=== PATIENT | male | born 1945 | race Caucasian/White ===

== ENCOUNTER 2020-03-01 21:47 | Emergency (ER) | payer OTHER ==
[~2020-03-01] VITALS: Ht 170.2 cm; Wt 73.0 kg
[2020-03-01 23:44] LABS: BASOPHILS % 0.5 % (0.0-2.0); EOSINOPHILS % 1.1 % (0.0-5.0); HEMATOCRIT. 28.6 % (42.0-52.0); HEMOGLOBIN. 9.9 g/dL (14.0-18.0); LYMPHOCYTES % 12.3 % (20.0-50.0); MEAN CORPUSCULAR VOLUME 89.3 fL (80.0-94.0); MEAN PLATELET VOLUME 7.9 fl (7.4-10.4); MONOCYTES % 8.5 % (2.0-8.0); NEUTROPHILS % 77.6 % (40.0-76.0); PLATELET 197 x1000/uL (130-400); RED CELL DISTRIBUTION WIDTH 15.9 % (11.6-14.6)
[2020-03-01 23:51] LABS: CHLORIDE 104 mEq/L (98-107)
[2020-03-02] MEDS ORDERED: ASPIRIN 81MG TABLET PO SCH (01:15)
[2020-03-02] MEDS ORDERED: SODIUM CHLORIDE 0.9% 1,000 ML IV ONE (01:15)
[2020-03-02] MEDS ORDERED: LEVOFLOXACIN 500MG PREMIX 100 ML IV SCH (01:15)
[2020-03-02] MEDS ORDERED: DIPHENHYDRAMINE 50MG/ML VIAL IV PRN (08:30)
[2020-03-02] MEDS ORDERED: CLONIDINE 0.1MG TABLET PO PRN (08:30)
[2020-03-02] MEDS ORDERED: ACETAMINOPHEN 325MG TABLET PO PRN (08:30)
[2020-03-02] MEDS ORDERED: ONDANSETRON HCL 4MG/2ML INJ IV PRN (08:30)
[2020-03-02] MEDS ORDERED: AZITHROMYCIN 500 MG in DEXT 5% WATER 250 ML IV SCH (09:00)
[2020-03-02 15:00] VITALS: BP 101/65
[2020-03-02] MEDS ORDERED: CEFTRIAXONE 2 G in DEXTROSE 5% WATER 50 ML IV SCH (16:15)
[2020-03-03] MEDS ORDERED: AZITHROMYCIN 500 MG in DEXT 5% WATER 250 ML IV SCH (09:00)
== END 2020-03-02 15:10 | disposition home or self-care (01) ==
LOC: ER 21:47 → CANRESERV 03-02 10:03 → ENRESERV 03-02 10:03 → CANBEDREQ 03-02 14:54 → ER 03-02 15:10
DX: A41.9 Sepsis, unspecified organism (principal); J18.9 Pneumonia, unspecified organism; R06.03 Acute respiratory distress; R73.9 Hyperglycemia, unspecified; I10 Essential (primary) hypertension; D64.9 Anemia, unspecified; Z03.818 Encounter for observation for suspected exposure to other biological agents ruled out; Z85.118 Personal history of other malignant neoplasm of bronchus and lung
CPT/HCPCS: 36415; 71045; 80053; 83605; 83880; 84145; 84484; 85025; 87040; 87635; 87804; 93005; 96365; 96366; 96367; 99291; J0456; J1956; J7060